=== PATIENT | female | born 1985 | race Caucasian/White ===

== ENCOUNTER 2024-02-09 06:35 | Emergency (ER) | payer MEDICAID ==
[~2024-02-09] VITALS: Ht 175.3 cm; Wt 81.9 kg
[2024-02-09] MEDS ORDERED: WELLBUTRIN XL300 MG PO (06:52)
[2024-02-09] MEDS ORDERED: ADDERALL 12.512.5 MG PO (06:52)
[2024-02-09] MEDS ORDERED: KETOROLAC TROMETHAMINE 60 MG/2 ML VIAL IM ONE (08:00)
[2024-02-09] MEDS ORDERED: predniSONE 20 MG TAB PO ONE (08:00)
[2024-02-09] MEDS ORDERED: PREDNISONE20 MG PO (08:09)
[2024-02-09 08:25] VITALS: BP 110/86
== END 2024-02-09 08:28 | disposition home or self-care (01) ==
LOC: ED 06:35
DX: S39.012A Strain of muscle, fascia and tendon of lower back, initial encounter (principal); X50.9XXA Other and unspecified overexertion or strenuous movements or postures, initial encounter; Z79.899 Other long term (current) drug therapy
CPT/HCPCS: 96372; 99283; J1885; J7512